=== PATIENT | female | born 1990 | race Two or more races ===

== ENCOUNTER 2020-05-01 14:48 | Emergency (ER) | payer BC, OTHER ==
[~2020-05-01] VITALS: Ht 165.1 cm; Wt 59.0 kg
--- NOTE | 2020-05-01 15:00 | NUR ---
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
[2020-05-01 15:09] VITALS: BP 144/80
[2020-05-01 15:11] LABS: APPEARANCE,URINE CLEAR; BILIRUBIN, URINE NEGATIVE (NEGATIVE); GLUCOSE, URINE (UA) NEGATIVE (NEGATIVE); KETONES,URINE 4+ (NEGATIVE); LEUKOCYTE ESTERASE ,URINE 2+ (NEGATIVE); NITRITE,URINE NEGATIVE (NEGATIVE); PH,URINE 7 (4.5-8.0); PROTEIN,URINE 1+ (NEGATIVE); UROBILINOGEN,URINE NORMAL MG/DL (0.0-1.0)
[2020-05-01 15:12] LABS: HEMATOCRIT 34.9 % (37.0-47.0); HEMOGLOBIN 12.2 G/DL (12.0-16.0); MEAN CORPUSCULAR VOLUME 86 FL (80-99); PLATELET COUNT 158 K/UL (150-450); RED BLOOD COUNT 4.08 M/UL (4.20-5.40); RED CELL DISTRIBUTION WIDTH 12.5 % (11.6-14.8); WHITE BLOOD COUNT 6.8 K/UL (4.8-10.8)
[2020-05-01 15:14] LABS: COLOR,URINE YELLOW
--- NOTE | 2020-05-01 15:30 | NUR ---
ED Nurse Note:pt. was BIBA from home with SI due to breaking with her boyfriend, pt. haven't try to do hurt herself et , she is crying on arrival, blood and urine sent to labs, oersonal belongimgs placed to locker #2
[2020-05-01 15:48] LABS: ANION GAP 12 mmol/L (5-15); BLOOD UREA NITROGEN 15 mg/dL (7-18); CALCIUM 8.9 MG/DL (8.5-10.1); CARBON DIOXIDE 21 MMOL/L (21-32); CHLORIDE 105 MMOL/L (98-107); CREATININE 0.8 MG/DL (0.55-1.30); POTASSIUM 3.9 MMOL/L (3.5-5.1); SODIUM 138 MMOL/L (136-145)
[2020-05-01 16:00] LABS: ALANINE AMINOTRANSFERASE 63 U/L (12-78); ALBUMIN 4.3 G/DL (3.4-5.0); ALBUMIN/GLOBULIN RATIO 1.1 (1.0-2.7); ALKALINE PHOSPHATASE 53 U/L (46-116); ASPARTATE AMINO TRANSFERASE 35 U/L (15-37); BILIRUBIN,TOTAL 0.8 MG/DL (0.2-1.0)
[2020-05-01] MEDS ORDERED: LORazepam 1mg tab ORAL ONE (16:00)
[2020-05-01] MEDS ORDERED: cefTRIAXone 1 GM in NS 55 ML IVPB ONE (16:00)
--- NOTE | 2020-05-01 16:47 | Emergency Room Report ---
History of Present Illness General Chief Complaint: Behavioral Complaint Source: Patient, EMS Present Illness HPI 29-year-old female with past medical history of anxiety and depression brought in by ambulance on 5150 hold for suicidal ideation. Patient states that her boyfriend broke up with her today and now she wants to slit her wrist. She had a previous hospitalization at age 21 for suicide attempt with overdose. She denies any physical complaints at this time including headache, cough, nausea, vomiting, chest pain, abdominal pain, back pain, hematuria, dysuria or any other symptoms. She denies any coingestions or drug abuse. Her psychiatrist is Dr. Huang. The patient's symptoms were gradual onset, severity was moderate, duration since 1 day. Quality: Denies pain. Positive suicidal ideation. Negative homicidal ideation. Negative auditory or visual hallucination Past medical history: Anxiety, depression Past surgical history: Denies Smoking: Denies Alcohol use: Denies Drug use: Denies Review of systems: CONST: No fevers or chills, No night sweats PULMONARY: No productive cough, No shortness of breath CARDIAC: No chest pain, No palpitations GI: No vomiting, No diarrhea , No melena_or_BRBPR : No dysuria, No hematuria, No discharge NEURO: No new_focal_weakness_or_numbness, No confusion, No vision changes 14 point Review of Systems is otherwise negative except per HPI Physical Exam: GENERAL: Awake_alert_ nontoxic, no acute distress Spo2 100% on RA -normal EYES: Extraocular muscles are intact. Conjunctivae clear. Lids without swelling ENT: External nose and ear normal_in_appearance. Oropharynx clear. Head_atraumatic, Moist_oral_mucosa NECK: No JVD. No meningismus. No thyromegaly. Supple. Trachea midline RESP: Normal respiratory effort. Symmetric rise. No stridor. Clear_ to_auscultation_No_rales_No_wheezes CARDIAC: Tachycardic and regular rhytm. No_significant pedal edema. ABDOMEN: Soft. Nondistended. Nontender_No_rebound_or_guarding. MSK: Normal muscle tone, without rigidity. Extremities without asymmetric deformity or swelling. SKIN: Warm and dry. No visible cyanosis or pallor NEUROLOGIC: Alert, oriented x3. Motor_and_sensation_grossly_intact. No truncal ataxia. Gait_normal Psych: Normal mood and affect, normal judgment and insight Suicidal. Not homicidal. No hallucinations - COORDINATION OF CARE Case was discussed with: Patient , Patient's Physician Any labs and imaging that were ordered were interpreted as part of the medical decision making: Medical Decision Making/Plan: Differential diagnosis includes severe depression, suicidal ideation, bipolar disorder, schizophrenia, drug abuse, drug overdose, among others. The patient denies any suicide attempt, overdose, or ingestion by cutting her wrist.. Skin examination is unremarkable. Radial pulses are +2 in the bilateral upper and lower extremities. They exhibit no signs of any toxic syndrome or drug / alcohol withdrawal. Labs were ordered for evaluation, and results are reassuring with no evidence of occult overdose, or severe metabolic derangement. EKG shows no obvious signs of TCA overdose. The patient was observed for a period of time in the ED with serial neurologic exams. She is currently medically clear. Awaiting placement to [facility] facility. After serial neurologic exams in the emergency department, the patient remains clinically sober. They have no focal neurologic deficits and were able to ambulate with a steady gait without assistance. The patients presentation seems to be consistent with suicidal ideation, with out any complications such as suicide attempt or overdose. The patient appears to be stable for transfer to a psychiatric facility for further psychiatric evaluation and care, without any obvious medical etiology for their symptoms. Care to be signed out to Dr Dunn pending placement Allergies: Coded Allergies: No Known Allergies (Unverified , 05/01/20) COVID-19 Screening Contact w/high risk pt: No Experienced COVID-19 symptoms?: No COVID-19 Testing performed MANAGER GREEN: No Nursing Documentation-[facility] History Of Psychiatric Problem: Yes - depression Physical Exam Vital Signs Date Time Temp Pulse Resp B/P (MAP) Pulse Ox O2 Delivery O2 Flow Rate FiO2 05/01/20 14:50 97.5 103 18 144/80 (101) 100 Room Air Sp02 EP Interpretation: reviewed, normal Medical Decision Making Diagnostic Impression: Primary Impression: Suicidal behavior Additional Impressions: Anxiety Depression UTI (urinary tract infection) EKG Diagnostic Results Troponin ordered: Yes DARIO Scribe Text 12-lead EKG (interpreted by me) Time: 1541 Indication: Rhythm analysis Tracing visualized and Interpreted by me. Rhythm: Normal sinus rhythm Rate: 84 bpm QTc: 477 Morphology: No_significant_ST_elevations_or_depressions, No STEMI Impression: Normal_sinus_rhythm_without_significant_abnormality Rhythm Strip Diag. Results Rhythm Strip Time: 16:46 EP Interpretation: yes Rate: 100 Rhythm: NSR, no PVC's, no ectopy Reevaluation Time: 16:47 Last Vital Signs Date Time Temp Pulse Resp B/P (MAP) Pulse Ox O2 Delivery O2 Flow Rate FiO2 05/01/20 16:14 80 16 144/80 100 05/01/20 15:09 97.5 Room Air Status: improved Disposition: PSYCH HOSP/UNIT Admit Decision Time: 22:00 Condition: Stable Referrals: NON PHYSICIAN (PCP) Vikki Hook D.O. May 01, 2020 16:47
--- NOTE | 2020-05-01 18:00 | NUR ---
ED Nurse Note:pt. was given ativan for anxiety
[2020-05-01 18:45] VITALS: BP 135/78
--- NOTE | 2020-05-01 19:15 | NUR ---
ED Nurse Note: Recieved report from MARYLU Mccann to resume care, pt is in bed awake, alert and on phone conversing with family, appears calm and is cooperative, pt is here on 5150 hold for DTS, pt has hx of depression and admits to not taking her meds, pt threatned to cut wrist after argument with boyfriend, pt states she does not want to harm self anymore but is still very depressed and sad, pt is tearful, no attempts made, pt is on suicidal precautions, no sitter available, nurse will watch pt, pt has patent saline lock, no fluids infusing, pt is gowned, belongings done by marylu mccann, pt area and environment checked for precautions, will continue to closely monitor as waiting for psych placement, pt has been medically cleared.
--- NOTE | 2020-05-01 20:03 | NUR ---
Monserrat Thompson, sister
[2020-05-01 22:00] VITALS: BP 131/69
--- NOTE | 2020-05-01 23:00 | NUR ---
ED Nurse Note: Pt in bed resting quietly, given juice, tolerated well, refused food, states is ok, spoke with pt family member (sister), Paola with pt permission, pt also spoke with her, pt is calm and cooperative and remains on suicidal precautions, no complaints of pain or any acute changes, pt denies HI or any hallucinations, will continue to monitor, pt waiting for psych placement to be available.
[2020-05-02 01:30] VITALS: BP 124/76
--- NOTE | 2020-05-02 03:00 | NUR ---
ED Nurse Note: Pt resting quietly in bed with eyes closed, appears to be sleeping, v/s stable, no sob or labored breathing, remains on suicidal precautions, no attempts or changes made, will continue to closely monitor as waiting for psych placement, pt remains on constant, close observation.
[2020-05-02 05:45] VITALS: BP 118/72
--- NOTE | 2020-05-02 06:30 | NUR ---
ED Nurse Note: Pt in bed awake and alert, assisted to bathroom, ambulates well with steady gait, pt remains teary eyed especially when asked iof she is ok, pt is calm and cooperative and follows all commands, no S.I. attempts made, denies H.I or any hallucinations, saline lock intact, pt sitting in bed eating breakfast tray, denies chest pain or any pain, no sob or labored breathing noted, continuing to wait for psych placement, will continue to closely monitor on suicidal precautions.
--- NOTE | 2020-05-02 07:10 | NUR ---
HAND-OFF: Report given to MARYLU Mejia.
[2020-05-02 07:11] VITALS: BP 121/74
--- NOTE | 2020-05-02 07:11 | NUR ---
ED Nurse Note: Received report from Cait VALERO. Pt AAOx4, verbally responsive. No SOB, on room air. Pt is eating her breakfast tray. Suicidal precaution is observed. Will cont to monitor.
--- NOTE | 2020-05-02 07:15 | NUR ---
ED Nurse Note: Denies SI/ HI at this time. Pt is calm and cooperative.
--- NOTE | 2020-05-02 07:55 | NUR ---
ED Nurse Note: - Monserrat Thompson (Sister)
--- NOTE | 2020-05-02 11:25 | NUR ---
ED Nurse Note: Report given to Ally from [facility] psych facility.
[2020-05-02 11:26] VITALS: BP 112/73
--- NOTE | 2020-05-02 12:16 | NUR ---
TRANSFER: Patient transferred to [facility] picked up by 2 EMT via [facility]ari. Pt AAOx4, verbally responsive. No SOB, on room air. IV line removed. No skin issues. No isolation. All belongings sent with the patient.
[2020-05-02 12:20] VITALS: BP 95/60
== END 2020-05-02 12:20 ==
LOC: EDBD 14:48 → EMR 15:38
DX: R45.851 Suicidal ideations (principal); F41.9 Anxiety disorder, unspecified; F32.9 Major depressive disorder, single episode, unspecified; N39.0 Urinary tract infection, site not specified; Z20.828 Contact with and (suspected) exposure to other viral communicable diseases
CPT/HCPCS: 36415; 80053; 80307; 81003; 81025; 84443; 84702; 85007; 85025; 93005; 96361; 96365; 99285; G0480; J0696; J7030; U0002